=== PATIENT | female | born 2000 | race Caucasian/White ===

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

== ENCOUNTER 2019-08-15 06:43 | Day surgery (SDC) | payer BC ==
[~2019-08-15 06:43] MED LIST: Lactated Ringers 1,000 ML IV SCH; Sodium Chloride 0.9% 10 ML SDV IV PRN; Sodium Chloride 0.9% 10 ML Syringe FLUSH PRN; Sodium Chloride 0.9% 2.5 ML Syringe FLUSH PRN
[2019-08-15] MEDS ORDERED: Bupivacaine 0.25% 10 ML SDV ONE (07:25)
--- NOTE | 2019-08-15 07:30 | PCM.PREANE ---
Preanesthetic Assessment - Anesthesia/Transfusion/Family Hx Anesthesia History: No Prior Anesthesia Family History of Anesthesia Reaction: No Transfusion History: No Prior Transfusion(s) - Review of Systems General: No Symptoms Pulmonary: No Symptoms Cardiovascular: No Symptoms Gastrointestinal: No Symptoms Neurological: No Symptoms Other: Reports: None - Physical Assessment NPO Status Date: 08/14/19 Vital Signs: Last Vital Signs Temp 97.3 F 08/15/19 07:20 Pulse 61 08/15/19 07:20 Resp 16 08/15/19 07:20 BP 110/70 08/15/19 07:20 Pulse Ox 98 08/15/19 07:20 Height: 5 ft 7 in Weight: 88.904 kg ASA Class: 2 Mental Status: Alert & Oriented x3 Airway Class: Mallampati = 2 Dentition: Reports: Normal Dentition ROM/Head Extension: Full Lungs: Clear to Auscultation, Normal Respiratory Effort Cardiovascular: Regular Rate, Regular Rhythm - Lab Values: Laboratory Last Values WBC 7.91 K/uL (4.0-11.0) 08/15/19 07:08 RBC 5.18 M/uL (4.30-5.90) 08/15/19 07:08 Hgb 14.5 g/dL (12.0-16.0) 08/15/19 07:08 Hct 43.8 % (36.0-46.0) 08/15/19 07:08 MCV 84.6 fL (80.0-98.0) 08/15/19 07:08 MCH 28.0 pg (27.0-32.0) 08/15/19 07:08 MCHC 33.1 g/dL (31.0-37.0) 08/15/19 07:08 RDW Std Deviation 42.0 fl (28.0-62.0) 08/15/19 07:08 RDW Coeff of Chantelle 14 % (11.0-15.0) 08/15/19 07:08 Plt Count 243 K/uL (150-400) 08/15/19 07:08 MPV 9.90 fL (7.40-12.00) 08/15/19 07:08 Nucleated RBC % 0.0 /100WBC 08/15/19 07:08 Nucleated RBCs # 0 K/uL 08/15/19 07:08 - Allergies Allergies/Adverse Reactions: Allergies Allergy/AdvReac Type Severity Reaction Status Date / Time No Known Allergies Allergy Verified 08/15/19 07:17 - Blood Blood Available: No - Anesthesia Plan Pre-Op Medication Ordered: None - Acknowledgements Anesthesia Type Planned: General Anesthesia Pt an Appropriate Candidate for the Planned Anesthesia: Yes Alternatives and Risks of Anesthesia Discussed w Pt/Guardian: Yes Pt/Guardian Understands and Agrees with Anesthesia Plan: Yes Additional Comments: anes prob list- none PLAAN: get PreAnesthesia Questionnaire HEENT History: Reports: Other (See Below) Other HEENT History: wears glasses/contacts Dermatologic History: Reports: Other (See Below) Other Dermatologic History: Herpes - Past Surgical History Head Surgeries/Procedures: Reports: None - SUBSTANCE USE Smoking Status *Q: Never Smoker Recreational Drug Use History: No - HOME MEDS Home Medications: Home Meds levonorgestreL [Mirena] 1 device IUTERINE ONETIME 08/08/19 [History] valACYclovir HCl [valACYclovir] 1,000 mg PO BID PRN MDD \ 08/08/19 [History] - CURRENT (IN HOUSE) MEDS Current Meds: Current Medications Lactated Ringer's (Ringers, Lactated) 1,000 mls @ 125 mls/hr IV ASDIRECTED TOI Last Admin: 08/15/19 07:16 Dose: 125 mls/hr Sodium Chloride (Saline Flush) 10 ml FLUSH ASDIRECTED PRN PRN Reason: Keep Vein Open Sodium Chloride (Saline Flush) 2.5 ml FLUSH ASDIRECTED PRN PRN Reason: Keep Vein Open Sodium Chloride (Normal Saline) 10 ml IV ASDIRECTED PRN PRN Reason: IV Use Discontinued Medications Bupivacaine HCl (Sensorcaine-Mpf 0.25%) Confirm Administered Dose 20 ml .ROUTE .STK-MED ONE Stop: 08/15/19 07:26
[2019-08-15] MEDS ORDERED: fentaNYL 100 MCG/2 ML SDV ONE (07:31)
[2019-08-15] MEDS ORDERED: Propofol 200 MG/20 ML SDV ONE (07:31)
[2019-08-15] MEDS ORDERED: Ondansetron 4 MG/2 ML SDV ONE (07:31)
[2019-08-15] MEDS ORDERED: Midazolam 1 MG/ML 2 ML SDV ONE (07:31)
[2019-08-15] MEDS ORDERED: Rocuronium 100 MG/10 ML Syringe ONE (07:32)
[2019-08-15] MEDS ORDERED: Ketorolac 30 MG/ML SDV ONE ×2 (07:32→10:15)
[2019-08-15] MEDS ORDERED: Sugammadex Sodium 200 MG/2 ML VIAL ONE (07:38)
[2019-08-15] MEDS ORDERED: Morphine 10 MG/ML Syringe ONE (08:19)
--- NOTE | 2019-08-15 09:51 | PCM.OPNOTE ---
- General Post-Op/Procedure Note Date of Surgery/Procedure: 08/15/19 Operative Procedure(s): Operative laparoscopy with left ovarian cystectomy, pelvic washings Findings: left ovarian simple cyst, approximately 4-5 cm, otherwise normal appearing pelvis Pre Op Diagnosis: Left ovarian cyst. pelvic pain Post-Op Diagnosis: Same Anesthesia Technique: General ET Tube Primary Surgeon: Catie Howard Fluid Replacement, Intraop: 1,400 EBL in mLs: 20 Complications: none known Condition: Stable Free Text/Narrative:: Dictation [id number]
--- NOTE | 2019-08-15 10:15 | PCM.POSTAN ---
POST ANESTHESIA ASSESSMENT - MENTAL STATUS Mental Status: Alert, Oriented - VITAL SIGNS Vital Signs: Last Vital Signs Temp 97.0 F 08/15/19 09:39 Pulse 56 L 08/15/19 09:57 Resp 14 08/15/19 09:57 BP 105/43 L 08/15/19 09:57 Pulse Ox 98 08/15/19 09:57 - RESPIRATORY Respiratory Status: Respiratory Rate WNL, Airway Patent, O2 Saturation Stable - CARDIOVASCULAR CV Status: Pulse Rate WNL, Blood Pressure Stable - GASTROINTESTINAL GI Status: No Symptoms - POST OP HYDRATION Hydration Status: Adequate & Stable
--- NOTE | 2019-08-15 10:49 | OR ---
SURGEON: Catie Howard M.D. DATE OF PROCEDURE: 08/15/2019 PREOPERATIVE DIAGNOSES: 1. Left ovarian cyst. 2. Pelvic pain. POSTOPERATIVE DIAGNOSES: 1. Left ovarian cyst. 2. Pelvic pain. PROCEDURE: Operative laparoscopy with left ovarian cystectomy and pelvic washings. PRIMARY SURGEON: Catie Howard MD. MAINFRAME SYSTEMS ADMINISTRATOR: Shantanu Gibson. ANESTHESIA: General endotracheal anesthesia. FLUIDS: 1400 mL of crystalloid. ESTIMATED BLOOD LOSS: Less than 20 mL. COMPLICATIONS: None known. FINDINGS: Approximately 4 to 5 cm left ovarian simple cyst, otherwise normal-appearing pelvis. DISPOSITION: The patient to PACU in stable condition, specimen to pathology. PROCEDURE DETAILS: Maki is a 19-year-old, G0, who presents this morning for scheduled operative laparoscopy given a persistent left ovarian cyst with pelvic pain. Risks of the procedure were discussed with proper consent obtained. The patient was taken to the operating room where she underwent general endotracheal anesthesia, was placed in modified dorsal lithotomy position, was prepped and draped in usual sterile fashion. SCDs to lower extremities. Bladder was drained. A speculum was introduced in the vagina. IUD strings were able to be visualized. A Aurora Feint uterine manipulator was now gently placed, trying to avoid the IUD. Allis clamp and speculum were now removed. Gloves changed. Attention turned abdominally. Infraumbilically, 0.25% Marcaine was introduced. A 5 mm infraumbilical skin incision was created. Anterior abdominal wall was tented upward. A Veress needle was introduced. Saline hanging drop test was performed. Pneumoperitoneum was achieved. The Veress needle was removed and a 5 mm trocar was introduced. This was just at the top of this trocar, therefore switched this to a longer trocar, which accommodated visualization much better. Laparoscope was introduced, peritoneal contents were identified. The right lower quadrant and left lower quadrant trocars were now introduced after prepping the regions with 0.25%Marcaine and creating 5 mm skin incisions. After trocars were introduced, the uterus was able to be visualized, mobile. Right tube and ovary appeared normal. The left ovary was distended with left ovarian cyst, appeared mostly simple in nature. Otherwise, the pelvis appeared smooth. Therefore, given this finding, performed pelvic washings, would be sent to pathology for analysis. The capsule of the ovarian cyst was able to be grasped with a laparoscopic grasper, and using a Harmonic Juanjose, the capsule was able to be incised. Now utilized blunt dissection to mobilize the ovarian cyst away from the overlying fallopian tube and ovarian capsule. Once the cyst was completely excised, it was placed in the anterior cul-de-sac. Extended the left lower quadrant trocar to accommodate a 12 mm trocar. Introduced Endo Bag and placed the ovarian cyst in the Endo Bag, which was now removed with contents to be sent to pathology. The pelvis now once again copiously irrigated. The left adnexa were closely inspected, appeared to be hemostatic. The upper abdomen was inspected. The liver edge was smooth. The appendix appeared normal. The anterior and posterior cul-de-sacs were closely inspected, appeared smooth with normal appearance. Photographs were taken. Once again inspected, and left adnexa appeared to be hemostatic. Relief pressure decreased to 5 mm. Hemostasis once again remained evident. Therefore, pneumoperitoneum was able to be released. The right and left quadrant trocars were removed under direct visualization followed by removal of laparoscope and infraumbilical trocar. The left lower quadrant fascia was reapproximated using 0 Vicryl. The skin edges were reapproximated using 4-0 Monocryl in subcuticular fashion. Attention was now turned vaginally. A speculum was introduced. The Hulka manipulator was gently removed. The IUD strings were still visualized. IUD appeared to be in appropriate position. Hemostasis appeared evident. Speculum was now removed. Sponge, instrument, and needle count was correct x2. The patient will go to PACU in stable condition, specimen to pathology. ANDREY / BRIAN /[id number]
--- NOTE | 2019-08-15 11:35 | PCM48HPAN ---
Post Anesthesia Note - EVALUATION WITHIN 48HRS OF ANESTHETIC Vital Signs in Normal Range: Yes Patient Participated in Evaluation: Yes Respiratory Function Stable: Yes Airway Patent: Yes Cardiovascular Function Stable: Yes Hydration Status Stable: Yes Pain Control Satisfactory: Yes Nausea and Vomiting Control Satisfactory: Yes Mental Status Recovered: Yes Vital Signs: Last Vital Signs Temp 97.0 F 08/15/19 09:39 Pulse 56 L 08/15/19 09:57 Resp 14 08/15/19 09:57 BP 105/43 L 08/15/19 09:57 Pulse Ox 98 08/15/19 09:57
== END 2019-08-15 11:30 | disposition home or self-care (01) ==
LOC: MW.SDS 06:43
PROVIDERS: ATTEND Obstetrics & Gynecology
DX: D27.1 Benign neoplasm of left ovary (principal)
CPT/HCPCS: 36415; 58662; 84703; 85027; J0131; J1885; J2250; J2270; J2405; J2704; J3010; J3490; J7120; 00840; 88104; 88307

== ENCOUNTER 2021-08-24 05:45 | Inpatient (IN) | payer BC ==
[2021-08-24] MEDS ORDERED: Misoprostol 200 MCG Tab PO PRN (07:05)
[2021-08-24] MEDS ORDERED: Tranexamic Acid 1,000 MG in Sodium Chloride 0.9% 100 ML IV PRN (07:05)
[2021-08-24] MEDS ORDERED: Water For Irrigation,Sterile 1,000 ML Container IRR PRN (07:05)
[2021-08-24] MEDS ORDERED: Nalbuphine 10 MG/1 ML Vial IVPUSH PRN (07:05)
[2021-08-24] MEDS ORDERED: Methylergonovine 0.2 MG/1 ML Amp IM PRN (07:05)
[2021-08-24] MEDS ORDERED: Lidocaine 1% 50 ML MDV INJECT PRN (07:05)
[2021-08-24] MEDS ORDERED: Carboprost Tromethamine 250 MCG/1 ML Amp IM PRN (07:05)
[2021-08-24] MEDS ORDERED: Ondansetron 4 MG/2 ML SDV IVPUSH PRN (07:05)
[2021-08-24] MEDS ORDERED: Sodium Chloride 0.9% 10 ML Syringe FLUSH PRN (07:05)
[2021-08-24] MEDS ORDERED: Butorphanol 1 MG/ML SDV IVPUSH PRN (07:05)
[2021-08-24] MEDS ORDERED: Sodium Chloride 0.9% 20 ML SDV IV PRN (07:05)
[2021-08-24] MEDS ORDERED: Sodium Chloride 0.9% 2.5 ML Syringe FLUSH PRN (07:05)
[2021-08-24] MEDS ORDERED: Oxytocin/0.9 % Sodium Chloride 30 UNIT/500 ML BAG IV SCH ×2 (07:15→09:30)
[2021-08-24] MEDS: Lactated Ringers 1,000 ML IV SCH ×3 (07:34→10:18)
[2021-08-24] MEDS ORDERED: ePHEDrine 50 MG/ML SDV IVPUSH PRN ×2 (07:45)
[2021-08-24] MEDS ORDERED: Ropivacaine HCl/PF 200 MG in Premix Bag 1 BAG EPIDUR SCH (07:45)
[2021-08-24] MEDS ORDERED: Misoprostol 25 MCG (1/4 of 100 MCG) Tab VAG PRN ×2 (09:16)
[2021-08-24] MEDS ORDERED: Terbutaline 1 MG/ML SDV SUBCUT PRN (09:16)
[2021-08-24] MEDS ORDERED: oxyCODONE 5 MG Tab PO PRN (13:41)
[2021-08-24] MEDS ORDERED: Docusate Sodium 100 MG Cap PO PRN (13:41)
[2021-08-24] MEDS ORDERED: Bisacodyl 10 MG Supp RECTAL PRN (13:41)
[2021-08-24] MEDS ORDERED: Witch Hazel Medicated Pads 40/Jar TOP PRN (13:41)
[2021-08-24] MEDS ORDERED: Acetaminophen 500 MG Tab PO PRN ×2 (13:41)
[2021-08-24] MEDS ORDERED: Ibuprofen 400 MG Tab PO PRN (13:41)
[2021-08-24] MEDS ORDERED: Ibuprofen 800 MG Tab PO PRN (13:41)
[2021-08-24] MEDS ORDERED: Lanolin 100% Cream 7 GM Tube TOP PRN (13:41)
[2021-08-24] MEDS ORDERED: Benzocaine/Menthol 20%-0.5% Spray 78 GM Cannister TOP PRN (13:41)
== END 2021-08-25 15:40 | disposition home or self-care (01) | DRG 560 ==
LOC: MW.OBCHECK 05:45 → MW.OB 05:46 → MW.OBCHECK 07:06 → MW.OB 07:06 → OBSVTOIN 12:14 → MW.OB 15:59
PROVIDERS: ADMIT Obstetrics & Gynecology; ATTEND Obstetrics & Gynecology
PROC: 10E0XZZ Delivery of Products of Conception, External Approach (ICD-10-PCS; principal; 2021-08-24)
PROC: 0HQ9XZZ Repair Perineum Skin, External Approach (ICD-10-PCS; 2021-08-24)
PROC: 3E0R3BZ Introduction of Anesthetic Agent into Spinal Canal, Percutaneous Approach (ICD-10-PCS; 2021-08-24)
DX: O98.32 Other infections with a predominantly sexual mode of transmission complicating childbirth (principal); A60.09 Herpesviral infection of other urogenital tract; Z3A.38 38 weeks gestation of pregnancy; Z37.0 Single live birth; O69.81X0 Labor and delivery complicated by cord around neck, without compression, not applicable or unspecified; Z20.822 Contact with and (suspected) exposure to COVID-19
CPT/HCPCS: 01967; 36415; 51702; 59025; 59409; 84112; 85014; 85018; 85027; 86592; 86850; 86900; 86901; A9270-GY; J0595; J2405; J2590; J7120; U0002

== ENCOUNTER 2023-12-07 08:46 | Emergency (ER) | payer BC ==
[2023-12-07] MEDS: Morphine 4 MG/ML Syringe IVPUSH ONE (09:07)
[2023-12-07] MEDS: Sodium Chloride 0.9% 1,000 ML IV ONE ×2 (09:07→11:15)
[2023-12-07] MEDS: Ondansetron 4 MG/2 ML SDV IVPUSH ONE (09:07)
[2023-12-07 09:09] LABS: BASOPHILS ABSOLUTE AUTO 0.04 K/uL (0.00-0.20); BASOPHILS PERCENT AUTO 0.5 % (0.0-1.0); EOSINOPHILS ABSOLUTE AUTO 0.12 K/uL (0.00-0.45); EOSINOPHILS PERCENT AUTO 1.4 % (0.0-6.0); HEMATOCRIT 46.4 % (37.0-47.0); HEMOGLOBIN 15.4 g/dL (12.0-16.0); IMMATURE GRAN ABSOLUTE AUTO 0.04 K/uL (0.00-0.05); IMMATURE GRAN PERCENT AUTO 0.5 % (0.0-0.4); LYMPHOCYTES ABSOLUTE AUTO 2.61 K/uL (1.00-4.80); LYMPHOCYTES PERCENT AUTO 30.1 % (24.0-44.0); MEAN CORPUSCULAR HEMOGLOBIN 27.7 pg (28.0-32.0); MEAN CORPUSCULAR HGB CONC 33.2 g/dL (32.0-36.0); MEAN CORPUSCULAR VOLUME 83.5 fL (83.0-99.0); MEAN PLATELET VOLUME 9.7 fL (9.4-12.3); MONOCYTES ABSOLUTE AUTO 0.57 K/uL (0.00-0.80); MONOCYTES PERCENT AUTO 6.6 % (0.0-8.0); NEUTROPHILS ABSOLUTE AUTO 5.29 K/uL (1.80-7.70); NEUTROPHILS PERCENT AUTO 60.9 % (41.0-71.0); PLATELET COUNT,PLT 241 K/uL (150-400); RED BLOOD CELL COUNT 5.56 M/uL (4.10-5.30); WHITE BLOOD CELL COUNT,WBC 8.67 K/uL (3.9-11.3)
[2023-12-07 09:56] LABS: A/G RATIO 0.9 (0.9-1.6); ALBUMIN 3.7 g/dL (3.4-5.0); BILIRUBIN TOTAL 0.5 mg/dL (0.2-1.0); CALCIUM 8.8 mg/dL (8.5-10.1); CARBON DIOXIDE,CO2 25.3 mmol/L (21.0-32.0); CREATININE 0.9 mg/dL (0.6-1.0); EST CRCL DRUG DOSING (CG) 89.45 mL/min; POTASSIUM,K 4.2 mmol/L (3.5-5.1); PROTEIN TOTAL,TP 7.8 g/dL (6.4-8.2)
[2023-12-07] MEDS: Iopamidol 755 MG/ML 500 ML Multipack Bottle IVPUSH STA (10:26)
[2023-12-07 11:00] LABS: APPEARANCE,URINE CLEAR; BILIRUBIN,URINE NEGATIVE (NEGATIVE); COLOR,URINE YELLOW; GLUCOSE,URINE NEGATIVE (NEGATIVE); KETONES,URINE NEGATIVE (NEGATIVE); LEUKOCYTE ESTERASE,URINE NEGATIVE (NEGATIVE); NITRITE,URINE NEGATIVE (NEGATIVE); OCCULT BLOOD,URINE NEGATIVE (NEGATIVE); PROTEIN,URINE NEGATIVE (NEGATIVE); UROBILINOGEN,URINE 0.2 EU/dL (<2.0)
[2023-12-07] MEDS: Ketorolac 30 MG/ML SDV IVPUSH ONE (11:38)
== END 2023-12-07 12:47 | disposition home or self-care (01) ==
LOC: MW.ED 08:46
DX: R10.31 Right lower quadrant pain (principal); Z79.899 Other long term (current) drug therapy; Z75.8 Other problems related to medical facilities and other health care
CPT/HCPCS: 36415; 74177; 76856; 80053; 81003; 84703; 85025; 96361; 96374; 96375; 99284; J1885; J2270; J2405; J7030; Q9967

== ENCOUNTER 2024-04-10 14:32 | Emergency (ER) | payer BC ==
[2024-04-10 15:04] LABS: BASOPHILS ABSOLUTE AUTO 0.03 K/uL (0.00-0.20); BASOPHILS PERCENT AUTO 0.4 % (0.0-1.0); EOSINOPHILS ABSOLUTE AUTO 0.07 K/uL (0.00-0.45); EOSINOPHILS PERCENT AUTO 0.9 % (0.0-6.0); HEMATOCRIT 43.6 % (37.0-47.0); HEMOGLOBIN 14.6 g/dL (12.0-16.0); IMMATURE GRAN ABSOLUTE AUTO 0.03 K/uL (0.00-0.05); IMMATURE GRAN PERCENT AUTO 0.4 % (0.0-0.4); LYMPHOCYTES ABSOLUTE AUTO 1.92 K/uL (1.00-4.80); LYMPHOCYTES PERCENT AUTO 25.4 % (24.0-44.0); MEAN CORPUSCULAR HEMOGLOBIN 27.5 pg (28.0-32.0); MEAN CORPUSCULAR HGB CONC 33.5 g/dL (32.0-36.0); MEAN CORPUSCULAR VOLUME 82.3 fL (83.0-99.0); MEAN PLATELET VOLUME 9.4 fL (9.4-12.3); MONOCYTES ABSOLUTE AUTO 0.45 K/uL (0.00-0.80); NEUTROPHILS ABSOLUTE AUTO 5.05 K/uL (1.80-7.70); NEUTROPHILS PERCENT AUTO 66.9 % (41.0-71.0); PLATELET COUNT,PLT 222 K/uL (150-400); WHITE BLOOD CELL COUNT,WBC 7.55 K/uL (3.9-11.3)
[2024-04-10 15:34] LABS: A/G RATIO 1.1 (0.9-1.6); ALANINE AMINOTRANSFERASE,ALT 38 IU/L (14-63); ALKALINE PHOSPHATASE 86 U/L (46-116); ASPARTATE AMNIOTRANSFERASE,AST 21 IU/L (15-37); BILIRUBIN TOTAL 0.5 mg/dL (0.2-1.0); BLOOD UREA NITROGEN,BUN 11 mg/dL (7.0-18.0); CALCIUM 9.1 mg/dL (8.5-10.1); CARBON DIOXIDE,CO2 31.8 mmol/L (21.0-32.0); CHLORIDE,CL 102 mmol/L (98-107); CREATININE 0.9 mg/dL (0.6-1.0); ESTIMATED GFR 91 mL/min (>60); GLUCOSE RANDOM 95 mg/dL (74-106); POTASSIUM,K 3.7 mmol/L (3.5-5.1); PROTEIN TOTAL,TP 7.8 g/dL (6.4-8.2); SODIUM,NA 139 mmol/L (136-145)
[2024-04-10 15:39] LABS: BILIRUBIN,URINE NEGATIVE (NEGATIVE); COLOR,URINE YELLOW; GLUCOSE,URINE NEGATIVE (NEGATIVE); KETONES,URINE NEGATIVE (NEGATIVE); LEUKOCYTE ESTERASE,URINE NEGATIVE (NEGATIVE); NITRITE,URINE NEGATIVE (NEGATIVE); OCCULT BLOOD,URINE MODERATE (NEGATIVE); PROTEIN,URINE NEGATIVE (NEGATIVE); UROBILINOGEN,URINE 0.2 EU/dL (<2.0)
[2024-04-10 15:46] LABS: APPEARANCE,URINE HAZY; BACTERIA,URINE FEW (NEGATIVE); EPITHELIAL CELLS,URINE FEW (NONE-FEW); RBC,URINE 0-4 (0-2/HPF)
== END 2024-04-10 17:25 | disposition home or self-care (01) ==
LOC: MW.ED 14:32
DX: O03.4 Incomplete spontaneous abortion without complication (principal); Z75.8 Other problems related to medical facilities and other health care; Z3A.00 Weeks of gestation of pregnancy not specified
CPT/HCPCS: 36415; 76817; 76817-26; 80053; 81001; 84702; 85025; 99283; 99284

== ENCOUNTER 2024-05-10 07:59 | Day surgery (SDC) | payer BC ==
[~2024-05-10 07:59] MED LIST changes: -Lactated Ringers 1,000 ML IV SCH; +Scopalamine 1mg/3day Transdermal Patch TRDERM PRN; -Sodium Chloride 0.9% 10 ML SDV IV PRN; +Sodium Chloride 0.9% 20 ML SDV IV PRN; +fentaNYL 100 MCG/2 ML SDV ONE; +propofoL 50 ML ONE
[2024-05-10 08:28] LABS: HEMATOCRIT 45.2 % (37.0-47.0); HEMOGLOBIN 15.3 g/dL (12.0-16.0); MEAN CORPUSCULAR HEMOGLOBIN 27.5 pg (28.0-32.0); MEAN CORPUSCULAR HGB CONC 33.8 g/dL (32.0-36.0); MEAN CORPUSCULAR VOLUME 81.3 fL (83.0-99.0); MEAN PLATELET VOLUME 9.5 fL (9.4-12.3); PLATELET COUNT,PLT 239 K/uL (150-400); RED BLOOD CELL COUNT 5.56 M/uL (4.10-5.30); WHITE BLOOD CELL COUNT,WBC 7.24 K/uL (3.9-11.3)
[2024-05-10] MEDS: Lactated Ringers 1,000 ML IV SCH (08:29)
[2024-05-10] MEDS: Scopalamine 1mg/3day Transdermal Patch TRDERM PRN (08:29)
[2024-05-10] MEDS ORDERED: Metoclopramide 10 MG/2 ML SDV IVPUSH PRN (09:00)
[2024-05-10] MEDS ORDERED: Morphine 2 MG/ML SYRINGE IVPUSH PRN (09:00)
[2024-05-10] MEDS ORDERED: Naloxone 0.4 MG/ML SDV IVPUSH PRN (09:00)
[2024-05-10] MEDS ORDERED: Phenylephrine HCl In 0.9% NaCl 1 MG/10 ML Syringe IVPUSH PRN (09:00)
[2024-05-10] MEDS ORDERED: HYDROmorphone 1 MG/ML Syringe IVPUSH PRN (09:00)
[2024-05-10] MEDS ORDERED: Ondansetron 4 MG/2 ML SDV IVPUSH PRN (09:00)
[2024-05-10] MEDS ORDERED: Albuterol 0.083% 2.5 MG/3 ML Neb Soln NEB PRN (09:00)
[2024-05-10] MEDS ORDERED: Tranexamic Acid 1,000 MG/10 ML Vial ONE (09:59)
[2024-05-10] MEDS ORDERED: Dexamethasone 4 MG/ML 5 ML MDV ONE (09:59)
[2024-05-10] MEDS ORDERED: Ondansetron 4 MG/2 ML SDV ONE (09:59)
[2024-05-10] MEDS ORDERED: fentaNYL 100 MCG/2 ML SDV ONE (10:02)
[2024-05-10] MEDS ORDERED: propofoL 50 ML ONE (10:11)
[2024-05-10] MEDS ORDERED: Ketorolac 30 MG/ML SDV ONE (10:17)
[2024-05-10] MEDS: fentaNYL 50 MCG/ML SDV IVPUSH PRN (10:45)
== END 2024-05-10 11:39 | disposition home or self-care (01) ==
LOC: MW.SDS 07:59
PROVIDERS: ATTEND Obstetrics & Gynecology
DX: O02.81 Inappropriate change in quantitative human chorionic gonadotropin (hCG) in early pregnancy (principal)
CPT/HCPCS: 36415; 59812; 85027; A9270; J0131; J1100; J1885; J2405; J2704; J3010; J7120; J3490

== ENCOUNTER 2025-05-12 13:52 | Inpatient (IN) | payer BC ==
[2025-05-12] MEDS ORDERED: Oxytocin/0.9 % Sodium Chloride 30 UNIT/500 ML BAG IV SCH ×2 (14:00→14:15)
[2025-05-12] MEDS ORDERED: Carboprost Tromethamine 250 MCG/1 mL Vial IM PRN (14:03)
[2025-05-12] MEDS ORDERED: Sodium Chloride 0.9% 10 ML Syringe FLUSH PRN (14:03)
[2025-05-12] MEDS ORDERED: Nalbuphine 10 MG/1 ML Vial IVPUSH PRN ×2 (14:03→18:02)
[2025-05-12] MEDS ORDERED: Sodium Chloride 0.9% 2.5 ML Syringe FLUSH PRN (14:03)
[2025-05-12] MEDS: Lactated Ringers 1,000 ML IV SCH (14:20)
[2025-05-12 14:42] LABS: MEAN PLATELET VOLUME 10.6 fL (9.4-12.3); NRBC ABSOLUTE 0.00 K/uL (0.00-0.02); NRBC PERCENT 0.0 /100WBC (0.0-0.2); PLATELET COUNT,PLT 204 K/uL (150-400); RED BLOOD CELL COUNT 4.05 M/uL (4.10-5.30); WHITE BLOOD CELL COUNT,WBC 7.90 K/uL (3.9-11.3)
[2025-05-12] MEDS ORDERED: dexmedeTOMIDine HCl 200 MCG/2 ML SDV ONE (15:31)
[2025-05-12] MEDS ORDERED: Ropivacaine HCl/PF 200 ML ONE (15:31)
[2025-05-12] MEDS ORDERED: ePHEDrine 50 MG/ML SDV IVPUSH PRN ×2 (15:57→18:02)
[2025-05-12] MEDS ORDERED: dexmedeTOMIDine HCl 200 MCG/2 ML SDV EPIDUR SCH ×2 (16:00→18:15)
[2025-05-12] MEDS ORDERED: Ropivacaine HCl/PF 400 MG in Premix Bag 1 BAG EPIDUR SCH ×2 (16:00→18:15)
[2025-05-12] MEDS ORDERED: Oxytocin 10 Units/1 ML SDV ONE (16:03)
[2025-05-12] MEDS ORDERED: Ondansetron 4 MG/2 ML SDV ONE (16:03)
[2025-05-12] MEDS ORDERED: fentaNYL 100 MCG/2 ML SDV ONE (16:03)
[2025-05-12] MEDS ORDERED: Dexamethasone Sod Phos Preservative Free 10 MG/ML Vial ONE (16:03)
[2025-05-12] MEDS ORDERED: Morphine PF 10 MG/10 ML SDV ONE ×2 (16:03→17:20)
[2025-05-12] MEDS ORDERED: Ropivacaine 0.5% 5 MG/ML 30 ML SDV ONE (16:03)
[2025-05-12] MEDS ORDERED: Ketorolac 30 MG/ML SDV ONE (16:03)
[2025-05-12] MEDS ORDERED: Naloxone 0.4 MG/ML SDV IVPUSH PRN ×2 (17:56→18:02)
[2025-05-12] MEDS ORDERED: diphenhydrAMINE 50 MG/ML SDV IVPUSH PRN ×2 (17:56→18:02)
[2025-05-12] MEDS ORDERED: Ondansetron 4 MG/2 ML SDV IVPUSH PRN ×3 (17:56→18:02)
[2025-05-12] MEDS ORDERED: Oxytocin 10 Units/1 ML SDV IM PRN (17:56)
[2025-05-12] MEDS ORDERED: Acetaminophen/oxyCODONE 325-5 MG Tab PO PRN ×3 (17:56→18:02)
[2025-05-12] MEDS ORDERED: Lactated Ringers 1,000 ML IV SCH (18:00)
[2025-05-12 18:02] LABS: PH,UMBILICAL ARTERIAL 7.07 (7.18-7.38); PH,UMBILICAL VENOUS 7.16 (7.25-7.45)
[2025-05-12] MEDS ORDERED: fentaNYL 100 MCG/2 ML SDV IVPUSH PRN (18:02)
[2025-05-12] MEDS ORDERED: fentaNYL 50 MCG/ML SDV IVPUSH PRN (18:02)
[2025-05-12] MEDS ORDERED: Albuterol 0.083% 2.5 MG/3 ML Neb Soln NEB PRN (18:02)
[2025-05-12] MEDS: Ondansetron 4 MG/2 ML SDV IVPUSH PRN (21:21)
[2025-05-12] MEDS ORDERED: Ketorolac 30 MG/ML SDV IVPUSH SCH (22:00)
[2025-05-12] MEDS: Ondansetron 4 MG/2 ML SDV IVPUSH ONE (23:20)
[2025-05-13] MEDS: droPERidol 2.5 MG/ML SDV IVPUSH ONE (00:10)
[2025-05-13] MEDS: Ketorolac 30 MG/ML SDV IVPUSH SCH (00:45)
[2025-05-13] MEDS: Lanolin 100% Cream 7 GM Tube TOP PRN (05:07)
[2025-05-13] MEDS ORDERED: Ondansetron 4 MG/2 ML SDV IVPUSH PRN (20:26)
[2025-05-13] MEDS ORDERED: Lanolin 100% Cream 7 GM Tube TOP PRN (20:26)
[2025-05-13] MEDS ORDERED: Acetaminophen/oxyCODONE 325-5 MG Tab PO PRN (20:26)
[2025-05-13] MEDS: Acetaminophen/oxyCODONE 325-5 MG Tab PO PRN (23:40)
== END 2025-05-14 13:10 | disposition home or self-care (01) | DRG 540 ==
LOC: MW.OBCHECK 13:52 → MW.OB 13:53 → MW.OBCHECK 15:04 → MW.OB 15:05
PROVIDERS: ADMIT Obstetrics & Gynecology; ATTEND Obstetrics & Gynecology
PROC: 10D00Z1 Extraction of Products of Conception, Low, Open Approach (ICD-10-PCS; principal; 2025-05-12 16:51)
DX: O42.02 Full-term premature rupture of membranes, onset of labor within 24 hours of rupture (principal); O98.52 Other viral diseases complicating childbirth; O32.8XX0 Maternal care for other malpresentation of fetus, not applicable or unspecified; B00.9 Herpesviral infection, unspecified; Z3A.39 39 weeks gestation of pregnancy; Z37.0 Single live birth
CPT/HCPCS: 01967; 01968; 36415; 51702; 64488; 82803; 85014; 85018; 85027; 86592; 86850; 86900; 86901; A9270-GY; J0166; J0665; J0690; J1100; J1790; J1885; J2003; J2274; J2371; J2405; J2590; J2795; J3010; J7120